=== PATIENT | female | born 1955 | race Caucasian/White ===

== ENCOUNTER 2019-12-12 14:22 | Outpatient (CLI) | payer MEDICARE, SELFPAY ==
--- NOTE | 2019-12-12 14:31 | XR_ITS ---
WS: [id number] LATERAL LUMBAR SPINE: 3 view. Lateral radiographs are performed in upright neutral, flexion and extension to the patient's toleranc e. HISTORY: RADICULAR LOW BACK PAIN COMPARISON: None available. L4 and L5 anterolisthesis on neutral imaging by 4 mm. With flexion and extension the anterolisthesis does not change significantly. S1 vertebral body partially lumbarized. Mild increase in lumbar lordos is. XR/XR lumbar spine f/e only [id number] IMPRESSION: 1. 4 mm anterolisthesis of L4 and L5 without instability. 2. No fracture.
== END 2019-12-12 14:23 | disposition home or self-care (01) ==
LOC: RAD 14:29
PROVIDERS: Family Provider Family Medicine; PCP Family Medicine; Visit Provider Family Medicine
DX: M54.5 Low back pain (principal)
CPT/HCPCS: 72120

== ENCOUNTER 2019-12-15 07:38 | Outpatient (CLI) | payer MEDICARE, SELFPAY ==
--- NOTE | 2019-12-15 08:12 | CT_ITS ---
WS: [id number] CT NECK TECHNIQUE: Contrast-enhanced CT of the neck with coronal and sagittal reformatted images. CLINICAL INFORMATION: LOCALIZED SWELLING, MASS AND LUMP, NECK COMPARISON: None. DLP: 3034.[address] scans at [facility] use at least one of these dose optimization techniques: automat ed exposure control; mA and/or kV adjustment per patient size (includes targeted exams where dose is matched to clinical indication); or iterative reconstruction. FINDINGS: 6.4 mm calculus along the distal right submandibular duct with a smaller calculus proximal measuring 4 mm. No significant ductal dilatation. No inflammatory stranding about the submandibular gland. Tom tional 2.5 mm calculus in the right submandibular gland. Left submandibular gland is normal in appear ance. Parotid glands are normal in appearance. Normal tongue base. Normal epiglottis. No evidence of suprag lottic or glottic mass. Partially visualized intracranial contents are unremarkable. No cervical lymp hadenopathy. Thyroid gland is normal. Partial opacification with fluid and mucosal thickening right m astoid air cells. Left mastoid air cells well aerated. Paranasal sinuses are well aerated. CT/CT neck w con* [id number] IMPRESSION: 1. 2 calculi along the right mandibular duct measuring 6.4 mm distally and 3.4 mm proximally. Additional 2.4 mm calculus in the right submandibular gland. 2. No significant inflammatory stranding about the submandibular gland. 3. Parotid glands are normal in appearance. 4. No cervical lymphadenopathy. 5. Opacification with fluid in the right mastoid air cells. Left mastoid air c ells are well aerated. Paranasal sinuses are well aerated. 6. No evidence of supraglottic or glottic mass.
[2019-12-15 09:50] LABS: Blood Urea Nitrogen 24 mg/dL (8-23); Glomerular Filtration Rate 62.8 mL/min (90-130)
[2019-12-15] MEDS: iohexol 300 mg/mL 100 mL Btl IV (09:58)
== END 2019-12-15 07:39 | disposition home or self-care (01) ==
PROVIDERS: Family Provider Family Medicine; PCP Family Medicine; Visit Provider Specialist
DX: R22.1 Localized swelling, mass and lump, neck (principal)
CPT/HCPCS: 70491; 82565; 84520; Q9967

== ENCOUNTER 2019-12-23 09:29 | Outpatient (CLI) | payer MEDICARE, SELFPAY ==
--- NOTE | 2019-12-23 09:36 | MR_ITS ---
WS: [id number] MRI LUMBAR SPINE NONCONTRAST HISTORY: Anterolisthesis. COMPARISON: None available. TECHNIQUE: Sagittal and axial multisequence imaging is submitted. Thoracolumbar scoliosis. Thoracic curvature to the RIGHT and lumbar scoliosis to the LEFT. Focal incr eased kyphosis centered in the midthoracic spine. Moderate degenerative spondylitic changes at T6-7 a nd T7-8. Posterior lumbar alignment is normal. No significant anterolisthesis of L4. Mild disc desiccation throughout with only mild narrowing of L1-2. Conus terminates normally at L1-2 disc level. L1-L2: Diffuse annular disc bulging with a focal LEFT paracentral disc protrusion superimposed on pos terior disc bulging and annular fissure. No significant stenosis. L2-L3: Normal. L3-L4: Mild ligamentum flavum hypertrophy. No significant stenosis. Very minimal narrowing of the RIG HT foramen. L4-L5: Very small LEFT paracentral disc protrusion. No significant stenosis. Increase fluid in the RI GHT facet joint with widening up to 4 mm. L5-S1: No significant stenosis. Fluid in the facet joints bilaterally, LEFT greater than the RIGHT wi th the facet joint measuring 3 mm. Small nerve root sleeve cysts are noted posterior to the sacrum. Visualized retroperitoneum is normal . MR/MR lumbar spine wo con* [id number] IMPRESSION: 1. No significant central stenosis. 2. Annular fissure with a LEFT paracentral disc protrusion at L1-2. No signifi cant encroachment or stenosis. 3. Synovial fluid with widening of the L4-5 RIGHT facet joint and the LEFT L5- S1 facet joint.
== END 2019-12-23 09:30 | disposition home or self-care (01) ==
LOC: RADWPI 09:34
PROVIDERS: Family Provider Family Medicine; PCP Family Medicine; Visit Provider Family Medicine
DX: M43.16 Spondylolisthesis, lumbar region (principal); M51.26 Other intervertebral disc displacement, lumbar region
CPT/HCPCS: 72148

== ENCOUNTER 2020-01-08 09:08 | Outpatient (CLI) | payer MEDICARE, SELFPAY | END 2020-01-08 09:09 | disposition home or self-care (01) | LOC: LAB 09:14 | PROVIDERS: Family Provider Family Medicine; PCP Family Medicine; Visit Provider Internal Medicine Critical Care Medicine | DX: J84.10 Pulmonary fibrosis, unspecified (principal) | CPT/HCPCS: 83516 ==

== ENCOUNTER 2020-03-29 12:45 | Outpatient (CLI) | payer MEDICARE, SELFPAY ==
[2020-03-29 13:41] VITALS: O2SAT 86; O2SAT 92; O2SAT 96
--- NOTE | 2020-03-29 13:56 | PFTS_ITS ---
Date of Study:03/29/20 Date of Dictation: MECHANICS: Forced vital capacity (FVC) is normal. Forced expiratory volume in one second (FEV1) is normal. FEV1/FVC is normal. FLOW VOLUME LOOP: Narrow. LUNG VOLUMES: Total lung capacity (TLC) is mildly reduced. Residual volume (RV) is reduced. DIFFUSING CAPACITY FOR CARBON MONOXIDE: Mildly reduced. INTERPRETATION: The pulmonary function tests are normal. However, there is some suggestion of extrathoracic restriction. The patient has preserved respiratory capacity with severely diminished expiratory reserve volume and mild reduction in total lung capacity and reduced residual volume. Gas exchange (DLCO) is mildly diminished. MTDD
--- NOTE | 2020-03-29 14:00 | CT_ITS ---
WS: [id number] CT chest wo con [id number] REASON FOR EXAM: pulmonary fibrosis IV CONTRAST ADMINISTERED: None. TOTAL EXAM DLP: 244.[address] scans at [facility] use at least one of these dose optimization techniques: automat ed exposure control; mA and/or kV adjustment per patient size (includes targeted exams where dose is matched to clinical indication); or iterative reconstruction. FINDINGS: The lung blake are slightly hypoaerated. There is evidence of tree-in-bud configuration the peripheral lower lung vasculature. There is edema this changes seen in the right lower lung. In the liver appears to be normal CT/CT chest wo con [id number] IMPRESSION: Cystic bronchiectasis lower lung blake. Allergic alveolitis.
== END 2020-03-29 12:46 | disposition home or self-care (01) ==
PROVIDERS: Family Provider Family Medicine; PCP Family Medicine; Visit Provider Internal Medicine Critical Care Medicine
DX: J84.10 Pulmonary fibrosis, unspecified (principal)
CPT/HCPCS: 71250; 94010; 94726; 94729

== ENCOUNTER 2020-05-25 20:00 | Outpatient (CLI) | payer MEDICARE, SELFPAY | END 2020-05-25 20:01 | disposition home or self-care (01) | LOC: SLEEP 05-26 09:57 | PROVIDERS: Family Provider Family Medicine; PCP Family Medicine; Visit Provider Family Medicine | DX: G47.33 Obstructive sleep apnea (adult) (pediatric) (principal) | CPT/HCPCS: 95811 ==

== ENCOUNTER → 2020-06-25 11:39 | Outpatient (BNVA) | payer MEDICARE, SELFPAY | PROVIDERS: Family Provider Family Medicine; PCP Family Medicine; Visit Provider Internal Medicine | DX: Z20.828 Contact with and (suspected) exposure to other viral communicable diseases (principal) | CPT/HCPCS: 87635 ==

== ENCOUNTER 2020-06-29 11:39 | Outpatient (CLI) | payer MEDICARE, SELFPAY ==
--- NOTE | 2020-06-29 12:34 | PFTS_ITS ---
Date of Study:06/29/20 Date of Dictation: MECHANICS: Forced vital capacity (FVC) is normal. Forced expiratory volume in one second (FEV1) is normal. FEV1/FVC is normal. FLOW VOLUME LOOP: Mild scooping especially at lower lung volumes. LUNG VOLUMES: Lung volumes were not measured. Inspiratory capacity is normal severe reduction of expiratory reserve volume. DIFFUSING CAPACITY FOR CARBON MONOXIDE: Mild reduced. INTERPRETATION: The pulmonary function tests are normal. Normal inspiratory capacity with reduced expiratory reserve volume is consistent with obesity. Gas exchange (DLCO) is mildly reduced. MTDD
== END 2020-06-29 11:40 | disposition home or self-care (01) ==
LOC: RT 11:41
PROVIDERS: PCP Family Medicine; Visit Provider Internal Medicine Critical Care Medicine
DX: J84.89 Other specified interstitial pulmonary diseases (principal)
CPT/HCPCS: 94010; 94729

== ENCOUNTER → 2020-11-03 11:29 | Outpatient (BNVA) | payer MEDICARE, SELFPAY | PROVIDERS: PCP Family Medicine; Visit Provider Internal Medicine Critical Care Medicine | DX: Z20.828 Contact with and (suspected) exposure to other viral communicable diseases (principal) | CPT/HCPCS: 87635 ==

== ENCOUNTER 2020-11-08 06:45 | Outpatient (CLI) | payer MEDICARE, SELFPAY ==
--- NOTE | 2020-11-08 14:16 | PFTS_ITS ---
Date of Study:11/08/20 Date of Dictation: MECHANICS: Forced vital capacity (FVC) is reduced. Forced expiratory volume in one second (FEV1) is normal. FEV1/FVC is normal. FLOW VOLUME LOOP: Narrowed with mild scooping. LUNG VOLUMES: Total lung capacity (TLC) is reduced. Residual volume (RV) is reduced. DIFFUSING CAPACITY FOR CARBON MONOXIDE: Mild reduced. INTERPRETATION: The pulmonary function tests are consistent with mild restriction. The patient has preserved respiratory capacity and significantly reduced expiratory reserve volume. The restriction is likely secondary to extrathoracic cause such as obesity. Lung volumes are consistent with mild restriction. Gas exchange (DLCO) is mildly reduced. MTDD
== END 2020-11-08 06:46 | disposition home or self-care (01) ==
PROVIDERS: PCP Family Medicine; Visit Provider Internal Medicine Critical Care Medicine
DX: J84.89 Other specified interstitial pulmonary diseases (principal)
CPT/HCPCS: 94010; 94726; 94729

== ENCOUNTER 2020-11-30 09:31 | Outpatient (CLI) | payer MEDICARE, SELFPAY ==
--- NOTE | 2020-11-30 09:35 | MM_ITS ---
WS: [id number] BILATERAL DIGITAL SCREENING MAMMOGRAPHY WITH CAD CLINICAL INFORMATION: SCREENING HISTORY: Screening mammogram. No current complaints. COMPARISON: TECHNIQUE: Bilateral CC and MLO views. FINDINGS: Scattered fibroglandular densities bilaterally. No suspicious focal mass, asymmetry, calcifications, or architectural distortion. No evidence of malignancy. Secretory and vascular calcifications. MM/[place] [id number] IMPRESSION: BI-RADS: 2-Benign FOLLOW UP: 1 Year Follow-up Recommend return to annual screening mammography.
== END 2020-11-30 09:32 | disposition home or self-care (01) ==
LOC: RADSHAW 09:34
PROVIDERS: PCP Family Medicine; Visit Provider Family Medicine
DX: Z12.31 Encounter for screening mammogram for malignant neoplasm of breast (principal)
CPT/HCPCS: 77067

== ENCOUNTER → 2021-02-16 14:48 | Outpatient (BNVA) | payer MEDICARE, SELFPAY | PROVIDERS: PCP Family Medicine; Visit Provider Internal Medicine Critical Care Medicine | DX: Z01.812 Encounter for preprocedural laboratory examination (principal); Z20.822 Contact with and (suspected) exposure to COVID-19 | CPT/HCPCS: 87635 ==

== ENCOUNTER → 2021-02-28 14:54 | Outpatient (BNVA) | payer MEDICARE, SELFPAY | PROVIDERS: PCP Family Medicine; Visit Provider Internal Medicine Critical Care Medicine | DX: Z20.822 Contact with and (suspected) exposure to COVID-19 (principal); Z01.812 Encounter for preprocedural laboratory examination | CPT/HCPCS: 87635 ==

== ENCOUNTER 2021-03-07 07:52 | Outpatient (CLI) | payer MEDICARE, SELFPAY ==
--- NOTE | 2021-03-07 13:45 | PFTS_ITS ---
Date of Study:03/07/21 Date of Dictation: 03/11/2021 MECHANICS: Prebronchodilator forced vital capacity (FVC) is normal. Prebronchodilator forced expiratory volume in one second (FEV1) is normal. FEV1/FVC is normal. There is no postbronchodilator study performed. FLOW VOLUME LOOP: Normal . LUNG VOLUMES: Not measured DIFFUSING CAPACITY FOR CARBON MONOXIDE: Mildly reduced 63% and normal when corrected to ventilation. . INTERPRETATION: The pulmonary function tests are normal. MTDD
== END 2021-03-07 07:53 | disposition home or self-care (01) ==
LOC: RT 07:54
PROVIDERS: PCP Family Medicine; Visit Provider Internal Medicine Critical Care Medicine
DX: J84.89 Other specified interstitial pulmonary diseases (principal)
CPT/HCPCS: 94010

== ENCOUNTER → 2022-03-23 09:01 | Outpatient (BNVA) | payer MEDICARE, SELFPAY | PROVIDERS: PCP Family Medicine; Visit Provider Internal Medicine Critical Care Medicine | DX: J84.89 Other specified interstitial pulmonary diseases (principal); J96.11 Chronic respiratory failure with hypoxia; G47.33 Obstructive sleep apnea (adult) (pediatric); E78.5 Hyperlipidemia, unspecified; K21.9 Gastro-esophageal reflux disease without esophagitis; I10 Essential (primary) hypertension; E03.9 Hypothyroidism, unspecified | CPT/HCPCS: 99214 ==

== ENCOUNTER 2022-04-04 07:19 | Outpatient (CLI) | payer MEDICARE, SELFPAY ==
--- NOTE | 2022-04-04 08:15 | PFTS_ITS ---
Date of Study:04/04/22 Date of Dictation: MECHANICS: Forced vital capacity (FVC) is reduced. Forced expiratory volume in one second (FEV1) is normal. FEV1/FVC is normal. FLOW VOLUME LOOP: Lateral. LUNG VOLUMES: Total lung capacity (TLC) is reduced. Residual volume (RV) is reduced. DIFFUSING CAPACITY FOR CARBON MONOXIDE: Mild reduced. INTERPRETATION: The postbronchodilator spirometry is consistent with mild restriction. There is no significant postbronchodilator response. Lung volumes are consistent with mild restriction. Gas exchange (DLCO) is mildly reduced. MTDD
== END 2022-04-04 07:20 | disposition home or self-care (01) ==
LOC: RT 07:22
PROVIDERS: PCP Family Medicine; Visit Provider Internal Medicine Critical Care Medicine
DX: J84.89 Other specified interstitial pulmonary diseases (principal)
CPT/HCPCS: 94060; 94726; 94729; J7611

== ENCOUNTER 2022-09-18 10:28 | Outpatient (CLI) | payer MEDICARE, SELFPAY ==
--- NOTE | 2022-09-18 10:32 | MM_ITS ---
WS: [id number] BILATERAL SCREENING DIGITAL TOMOSYNTHESIS MAMMOGRAM WITH CAD HISTORY: SCREENING COMPARISON: 11/30/2020, 10/17/2019 Bilateral CC and MLO views with tomosynthesis and synthetic mammography submitted. Computer aided det ection analyzed. Breast composition: There are scattered areas of fibroglandular density. No suspicious masses, microc alcifications or architectural distortion. Benign calcifications in each breast. MM/[place] [id number] IMPRESSION: BI-RADS: 2-Benign FOLLOW UP: 1 Year Follow-up
== END 2022-09-18 10:29 | disposition home or self-care (01) ==
PROVIDERS: PCP Family Medicine; Visit Provider Family Medicine
DX: Z12.31 Encounter for screening mammogram for malignant neoplasm of breast (principal)
CPT/HCPCS: 77063; 77067

== ENCOUNTER → 2022-10-11 13:24 | Outpatient (BNVA) | payer MEDICARE, SELFPAY | PROVIDERS: PCP Family Medicine; Visit Provider Internal Medicine Pulmonary Disease | DX: J84.89 Other specified interstitial pulmonary diseases (principal); J96.11 Chronic respiratory failure with hypoxia; G47.33 Obstructive sleep apnea (adult) (pediatric); I10 Essential (primary) hypertension; Z99.81 Dependence on supplemental oxygen | CPT/HCPCS: 99214 ==

== ENCOUNTER → 2023-04-12 09:26 | Outpatient (BNVA) | payer MEDICARE, SELFPAY | PROVIDERS: PCP Family Medicine; Visit Provider Internal Medicine Pulmonary Disease | DX: J84.89 Other specified interstitial pulmonary diseases (principal); J96.11 Chronic respiratory failure with hypoxia; G47.33 Obstructive sleep apnea (adult) (pediatric); Z79.52 Long term (current) use of systemic steroids; Z99.81 Dependence on supplemental oxygen | CPT/HCPCS: 99214 ==

== ENCOUNTER 2023-12-09 10:00 | Emergency (ER) | payer MEDICARE, SELFPAY ==
[2023-12-09 10:21] VITALS: BP 188/69; PULSE 62; RESP 16; TEMP 37.1; O2SAT 95; BMI 41.8
[2023-12-09 11:19] LABS: Basophils % 0.4 %; Eosinophils # 0.1 10^3/uL (0.0-0.8); Eosinophils % 0.8 %; Hematocrit 40.8 % (36-47); Lymphocytes # 1.5 10^3/uL (0.8-4.8); Lymphocytes % 18.6 %; Mean Corpuscular HGB Conc 31.9 g/dL (30-55); Mean Corpuscular Volume 94.2 fl (85-98); Monocytes # 0.7 10^3/uL (0.2-0.9); Monocytes % 9.1 %; Neutrophils # 5.54 10^3/uL (1.8-7.7); Neutrophils % 70.6 %; Nucleated Red Blood Cells % 0 %; Platelet Count 206 10^3/cmm (157-399); Red Blood Count 4.33 10^6/uL (3.85-5.65); Red Cell Distribution Width 13.4 % (12.1-15.1); White Blood Count 7.84 10^3/uL (3.29-11.43)
[2023-12-09 11:31] LABS: Lactic Sepsis W/Reflex 2.3 mmol/L (0.5-2.2)
[2023-12-09 11:43] LABS: Procalcitonin 0.06 ng/mL (0-0.5)
--- NOTE | 2023-12-09 11:43 | W.ED.SKABFB ---
HPI - Skin/Abscess/Foreign Bdy General: Chief complaint: Skin/Abscess/Foreign Body Stated complaint: redness and warmth aroung wound Time Seen by Provider: 12/09/23 11:14 History of Present Illness: This patient is a 67-year-old white female who presents to the emergency department concerned about a wound infection involving the right lower extremity. Patient had a basal cell carcinoma removed on which was overlying the right ortez. She has noticed some red streaks moving out of the wound and she has had some purulent drainage. She has not had a fever. Review of Systems General: Reports: 10 or more systems reviewed and unremarkable except in HPI and below Skin/Breast: Reports: erythema PFSH ED PFSH: Medical History NSIP (nonspecific interstitial pneumonitis) Hyperlipidemia Essential (primary) hypertension Hypothyroidism GERD (gastroesophageal reflux disease) Colon cancer Surgical History History of lung biopsy S/P colectomy History of hysterectomy History of appendectomy H/O tubal ligation History of removal of ovarian cyst Family History Mother Cancer Breast Grandmother Stroke Grandmother Dementia Social History Smoking and tobacco/nicotine status: never used tobacco/nicotine Second hand smoke exposure: No Alcohol intake: never Substance/Drug Use: never Lives independently: Yes Household members: spouse Marital status: service: No Current occupational status: retired Do you think of yourself as: Straight/Heterosexual Current gender identity: Female Physical Exam Const: COMMON NORMALS: no acute distress, patient oriented x3 and no limitations GENERAL APPEARANCE: cooperative and comfortable HENMT: COMMON NORMALS: normocephalic, atraumatic, Normal nasal mucous membranes and turbinates present, moist oral mucous membranes and oropharynx normal HEAD & SCALP: normal to inspection, normocephalic and atraumatic FACE & SINUS: normal facial exam NOSE: Normal nasal mucous membranes and turbinates present Eye: COMMON NORMALS: Equal, round and reactive pupils present, EOMs intact bilaterally and conjunctivae normal GENERAL EYE: appearance normal, both eyes and all related structures CONJUNCTIVA: Yes conjunctivae normal PUPIL: Yes Equal, round and reactive pupils present Neck/C-Spine: COMMON NORMALS: supple and no JVD Chest: COMMONS NORMALS: normal inspection of the chest Resp: COMMON NORMALS: normal respiratory effort and clear to auscultation bilaterally AUSCULTATION: clear to auscultation bilaterally Cardio: COMMON NORMALS: no JVD, regular rate, regular rhythm, No gallops present (Cardio), No murmurs present (Cardio) and No rub (Cardio) RATE: regular rate RHYTHM: regular rhythm GI: COMMON NORMALS: Normal to inspection, nondistended, normoactive bowel sounds present, Soft to palpation and non-tender AUSCULTATION: Yes normoactive bowel sounds PALPATION: Yes Soft to palpation : COMMON NORMALS: Yes no CVA tenderness BLADDER/KIDNEY EXAM: Yes no CVA tenderness Back/Pelvis: COMMON NORMALS: no CVA tenderness and thoracic and lumbar spine normal to inspection Extremity: COMMON NORMALS: normal to inspection Neuro: COMMON NORMALS: patient oriented x3 and CN's II-XII intact bilaterally Psych: COMMON NORMALS: mental status grossly normal, Normal thought process present and cooperative THOUGHT PROCESS: Normal thought process present Skin: NARRATIVE SKIN EXAM: Ulcerative appearing lesion over the right ortez with surrounding erythema. Straw-colored drainage from the surface of the wound. Course Vital Signs: Vital signs: Vital Signs Temperature 98.8 F 12/09/23 10:21 Pulse Rate 62 12/09/23 10:21 Respiratory Rate 16 12/09/23 10:21 Blood Pressure 188/69 12/09/23 10:21 Pulse Oximetry 95 12/09/23 10:21 Oxygen Delivery Me thod Room Air 12/09/23 10:21 MDM - Skin/Abscess/Foreign Bdy Medicial Decision Making CBC was normal. Patient was placed on clindamycin. Recommended she follow-up with her independent beauty consultant soon as possible for recheck. She was discharged in stable condition. Lab Data 12/09/23 11:02 12/09/23 11:02 Laboratory Results WBC 7.84 10^3/uL (3.29-11.43) 12/09/23 11:02 RBC 4.33 10^6/uL (3.85-5.65) 12/09/23 11:02 Hgb 13.00 g/dL (11.27-16.99) 12/09/23 11:02 Hct 40.8 % (36-47) 12/09/23 11:02 MCV 94.2 fl (85-98) 12/09/23 11:02 MCH 30.0 pg (27-33) 12/09/23 11:02 MCHC 31.9 g/dL (30-55) 12/09/23 11:02 RDW 13.4 % (12.1-15.1) 12/09/23 11:02 Plt Count 206 10^3/cmm (157-399) 12/09/23 11:02 MPV 9.0 fL (7.4-10.4) 12/09/23 11:02 Neut % (Auto) 70.6 % 12/09/23 11:02 Lymph % (Auto) 18.6 % 12/09/23 11:02 Tillman % (Auto) 9.1 % 12/09/23 11:02 Eos % (Auto) 0.8 % 12/09/23 11: Baso % (Auto) 0.4 % 12/09/23 11:02 Neut # (Auto) 5.54 10^3/uL (1.8-7.7) 12/09/23 11:02 Lymph # (Auto) 1.5 10^3/uL (0.8-4.8) 12/09/23 11:02 Tillman # (Auto) 0.7 10^3/uL (0.2-0.9) 12/09/23 11:02 Eos # (Auto) 0.1 10^3/uL (0.0-0.8) 12/09/23 11:02 Baso # (Auto) 0.0 10^3/uL (0.0-0.1) 12/09/23 11:02 Nucleated RBC % (auto) 0 % 12/09/23 11:02 Nucleated RBCs # 0.0 /100WBC 12/09/23 11:02 Lactic Acid 2.3 mmol/L (0.5-2.2) H 12/09/23 11:02 No radiology studies performed this visit Discharge Plan Discharge Patient Disposition: Home Clinical Impression: Postoperative wound infection Condition: Stable Prescriptions: New clindamycin HCl 300 mg capsule 300 mg PO QID 10 Days Qty: 40 0RF No Action prednisone 10 mg tablet 10 mg PO DAILY mycophenolate mofetil 500 mg tablet 1,000 mg PO BID benzonatate 200 mg capsule 200 mg PO DAILY simvastatin 80 mg tablet 80 mg PO DAILY levothyroxine 100 mcg capsule 100 mcg PO DAILY omeprazole 20 mg capsule,delayed release(DR/EC) 20 mg PO DAILY cetirizine [Zyrtec] 10 mg tablet 5 mg PO DAILY aspirin 81 mg tablet,delayed release (DR/EC) 81 mg PO DAILY ferrous sulfate [Ariane-Time] 325 mg (65 mg iron) tablet 325 mg PO DAILY Ca-D3-mag cj-pack-xqu-ric-bor [Calcium 600-D3 Plus (mag-zinc)] 600 mg calcium- 800 unit-50 mg tablet 1 tab PO DAILY Centrum Silver 0.4-300-250 mg-mcg-mcg tablet 1 tab PO DAILY losartan 50 mg tablet 100 mg PO DAILY (DME) oxygen-air delivery systems Device See Rx Instructions .Route Rx Instructions: As directed azelastine 137 mcg (0.1 %) aerosol,spray 2 spray intranasal BID Qty: 30 6RF Rx Instructions: administer into each nostril hydrochlorothiazide 12.5 mg tablet 12.5 mg PO DAILY Qty: 30 3RF Discharge Orders: Discharge ED (Routine); Ordered 12/09/23 Ordered By: Moise Pedersen Referrals: Bimal Barron MD [Primary Care Provider] - Activity Restrictions/Additional Instructions: Follow-up with your independent beauty consultant soon as possible for recheck. Coding Level of Care Code ED Diabetes Territory Manager for Celia Aguirre
[2023-12-09 11:54] LABS: Alanine Aminotransferase 26 U/L (0-33); Albumin Level 4.1 g/dL (3.5-5.2); Alkaline Phosphatase 39 U/L (35-105); Anion Gap 19.7 (5-19); Aspartate Amino Transferase 19 U/L (0-32); Blood Urea Nitrogen 25 mg/dL (8-23); Carbon Dioxide 22 mmol/L (22-29); Chloride 101 mmol/L (98-107); Globulin 2.5 g/dL (1.3-4.6); Glomerular Filtration Rate 44.7 mL/min (90-130); Glucose 157 mg/dL (65-115); Osmolality Calculated 296 mOsm/kg (285-295); Potassium 3.7 mmol/L (3.5-5.1); Sodium 139 mmol/L (136-145); Total Bilirubin 0.4 mg/dL (0.15-1.2); Total Protein 6.6 g/dL (6.6-8.7)
== END 2023-12-09 12:01 | disposition home or self-care (01) ==
PROVIDERS: Internal Medicine; Emergency Provider Emergency Medicine; PCP Family Medicine
DX: T81.49XA Infection following a procedure, other surgical site, initial encounter (principal); Z79.82 Long term (current) use of aspirin; E78.5 Hyperlipidemia, unspecified; I10 Essential (primary) hypertension; Z85.038 Personal history of other malignant neoplasm of large intestine; Y83.8 Other surgical procedures as the cause of abnormal reaction of the patient, or of later complication, without mention of misadventure at the time of the procedure
CPT/HCPCS: 36415; 80053; 83605; 84145; 85025; 99283

== ENCOUNTER → 2023-12-13 10:31 | Outpatient (BNVA) | payer MEDICARE, SELFPAY | PROVIDERS: PCP Family Medicine; Visit Provider Internal Medicine Pulmonary Disease | DX: J84.89 Other specified interstitial pulmonary diseases (principal); J96.11 Chronic respiratory failure with hypoxia; G47.33 Obstructive sleep apnea (adult) (pediatric) | CPT/HCPCS: 99214 ==

== ENCOUNTER 2024-04-29 08:50 | Outpatient (CLI) | payer MEDICARE, SELFPAY ==
--- NOTE | 2024-04-29 08:52 | MM_ITS ---
WS: [id number] BILATERAL 3D TOMOSYNTHESIS DIGITAL SCREENING MAMMOGRAPHY WITH CAD CLINICAL INFORMATION: SCREENING HISTORY: Screening mammogram. No current complaints. COMPARISON: 2021 TECHNIQUE: Bilateral CC and MLO views. FINDINGS: Scattered fibroglandular densities bilaterally. No suspicious focal mass, asymmetry, calcifications, or architectural distortion. No evidence of malignancy. Vascular calcification. Bilateral incidental secretory calcifications. MM/[place] [id number] IMPRESSION: BI-RADS: 2-Benign FOLLOW UP: 1 Year Follow-up Recommend return to annual screening mammography.
== END 2024-04-29 08:51 | disposition home or self-care (01) ==
PROVIDERS: PCP Family Medicine; Visit Provider Family Medicine
DX: Z12.31 Encounter for screening mammogram for malignant neoplasm of breast (principal); R92.323 Mammographic fibroglandular density, bilateral breasts; R92.1 Mammographic calcification found on diagnostic imaging of breast
CPT/HCPCS: 77063; 77067

== ENCOUNTER 2024-09-02 08:31 | Outpatient (CLI) | payer MEDICARE, SELFPAY ==
[2024-09-02 08:57] VITALS: PULSE 85; RESP 18; O2SAT 96
[2024-09-02] MEDS: albuterol 2.5 mg/3 mL Neb INHALATION (08:57)
[2024-09-02 09:02] VITALS: PULSE 71
== END 2024-09-02 08:32 | disposition home or self-care (01) ==
PROVIDERS: PCP Family Medicine; Visit Provider Family Medicine
DX: J84.9 Interstitial pulmonary disease, unspecified (principal); R94.2 Abnormal results of pulmonary function studies
CPT/HCPCS: 94060; 94726; 94729

== ENCOUNTER 2025-04-13 20:00 | Outpatient (CLI) | payer MEDICARE, SELFPAY | END 2025-04-13 20:01 | disposition home or self-care (01) | LOC: SLEEP 04-14 00:17 | PROVIDERS: PCP Family Medicine; Visit Provider Internal Medicine Pulmonary Disease | DX: G47.33 Obstructive sleep apnea (adult) (pediatric) (principal) | CPT/HCPCS: 95811 ==

== ENCOUNTER 2025-04-21 11:02 | Outpatient (CLI) | payer MEDICARE, SELFPAY ==
[2025-04-21 11:18] VITALS: PULSE 60; RESP 18; O2SAT 97
[2025-04-21] MEDS: albuterol 2.5 mg/3 mL Neb INHALATION (11:18)
--- NOTE | 2025-04-21 11:41 | CT_ITS ---
WS: [id number] CT chest wo con [id number] HISTORY: IDOPATHIC PULMONARY FIBROSIS TECHNIQUE: Axial imaging performed through the thorax. Coronal and sagittal reformats are submitted. All CT scans at [facility] use at least one of these dose optimization techniques: automated exposure control; mA and/or kV adjustment per patient size (includes targeted exams where dose is matched to clinical indication); or iterative reconstruction. CONTRAST: None DLP: 553.09 mGy.cm COMPARISON: 03/29/2020 Lungs and central airway: Mild pulmonary fibrosis. Upper lung blake are clear. Beginning in the mid to lower thorax there is increasing interstitial thickening and fibrosis. Mild volume loss at the lung bases. Bilateral lower lobe bronchiectasis. And atelectasis. Benign calcifications RIGHT lower lung. Pleura: No pleural effusions. Pleural calcifications RIGHT lower thorax. Heart and pericardium: Mild cardiomegaly. No pericardial effusion. Mediastinum and deena: Without IV contrast lymph nodes are difficult to identify. No obvious adenopathy. Vessels: Mild atherosclerosis aorta. No aneurysm. Mildly dilated pulmonary artery. Chest wall and lower neck: No soft tissue masses. Upper abdomen: No adrenal mass. Moderate suprarenal aortic calcifications. Osseous structures: Advanced degenerative disc disease in the midthoracic spine. No osseous destruction. Remote rib fractures RIGHT lateral thorax. Note: This exam was ordered as a chest CT. For more specific evaluation of pulmonary fibrosis high risk chest CT can be performed. CT/CT chest wo con [id number] IMPRESSION: 1. Bilateral lower lobe volume loss with bronchiectasis and interstitial fibro sis. 2. Benign RIGHT lung calcifications small amount of calcification in the RIGHT pleura. 3. Mild cardiomegaly. 4. Mild pulmonary hypertension.
== END 2025-04-21 11:03 | disposition home or self-care (01) ==
PROVIDERS: PCP Family Medicine; Visit Provider Family Medicine
DX: J84.112 Idiopathic pulmonary fibrosis (principal); R94.2 Abnormal results of pulmonary function studies; R91.8 Other nonspecific abnormal finding of lung field; J47.9 Bronchiectasis, uncomplicated; J98.4 Other disorders of lung; J94.8 Other specified pleural conditions; I51.7 Cardiomegaly; I27.20 Pulmonary hypertension, unspecified; J98.11 Atelectasis; I70.0 Atherosclerosis of aorta; R93.89 Abnormal findings on diagnostic imaging of other specified body structures; I70.8 Atherosclerosis of other arteries; M51.34 Other intervertebral disc degeneration, thoracic region; S22.41XD Multiple fractures of ribs, right side, subsequent encounter for fracture with routine healing; X58.XXXD Exposure to other specified factors, subsequent encounter
CPT/HCPCS: 71250; 94060; 94726; 94729; J7613

== ENCOUNTER 2025-05-28 08:24 | Outpatient (CLI) | payer MEDICARE, SELFPAY ==
--- NOTE | 2025-05-28 | MM_ITS ---
WS: [id number] Bilateral screening 3D tomosynthesis digital mammogram, 05/28/2025 8:32 AM Clinical Data: ANNUAL SCREENING Comparison: 04/29/2024, 09/18/2022, 11/30/2020, 10/17/2019, 09/24/2018, 07/03/2017, 04/24/2016, 04/21/2015, 02/20/2014, 02/17/2013, 02/14/2012, 11/21/2010, 08/27/2009, 08/17/2008. Findings: No spiculated masses or clustered calcifications are seen. There are no secondary signs of carcinoma. There are benign ductal calcifications in the inferior aspects of both breasts. Fibroglandular tissue is present. MM/MM [facility] tomosynthesis [id number] Impression: Negative bilateral mammogram unchanged. Recommend annual screening mammograms. BIRADS: 1 - Negative. FOLLOW UP: 1 Year Follow-up DENSITY: There are scattered areas of fibroglandular density. The CAD lap checker was used
== END 2025-05-28 08:25 | disposition home or self-care (01) ==
LOC: RAD 08:26
PROVIDERS: PCP Family Medicine; Visit Provider Family Medicine
DX: Z12.31 Encounter for screening mammogram for malignant neoplasm of breast (principal); R92.323 Mammographic fibroglandular density, bilateral breasts; R92.1 Mammographic calcification found on diagnostic imaging of breast
CPT/HCPCS: 77063; 77067

== ENCOUNTER → 2025-10-09 10:18 | Outpatient (BNVA) | payer MEDICARE, SELFPAY | PROVIDERS: PCP Family Medicine; Visit Provider Internal Medicine | DX: J84.89 Other specified interstitial pulmonary diseases (principal); G47.33 Obstructive sleep apnea (adult) (pediatric); Z99.89 Dependence on other enabling machines and devices; Z91.198 Patient's noncompliance with other medical treatment and regimen for other reason; J96.11 Chronic respiratory failure with hypoxia; Z99.81 Dependence on supplemental oxygen; J30.9 Allergic rhinitis, unspecified; D84.9 Immunodeficiency, unspecified; J44.9 Chronic obstructive pulmonary disease, unspecified; J84.10 Pulmonary fibrosis, unspecified; T78.40XA Allergy, unspecified, initial encounter; X58.XXXA Exposure to other specified factors, initial encounter; J84.9 Interstitial pulmonary disease, unspecified | CPT/HCPCS: 36415; 82103; 82164; 85025; 85651; 86003; 86036; 86038; 86225; 86235; 86431; 99215; Q3014 ==